=== PATIENT | male | born 1985 | race Two or more races ===

== ENCOUNTER 2017-05-20 09:55 | Emergency (ER) | payer OTHER ==
--- NOTE | 2017-05-20 11:00 | EDM.PDOC ---
ED HPI GENERAL MEDICAL PROBLEM - General Chief Complaint: Eye Problems Stated Complaint: EYE PAIN Time Seen by Provider: 05/20/17 10:12 Source of Information: Reports: Patient History Limitations: Reports: No Limitations - History of Present Illness INITIAL COMMENTS - FREE TEXT/NARRATIVE: The patient presents with pain and decreased vision to the left eye. He started noticing some pain to the left eye 2 days ago and he could not get in to see Dr Garrison so he went to see Dr Day. Dr Day examined his eye and dilated his eye. According to the patient Dr Day saw a corneal abrasion and put him on vibramycin drops, contact lens and patch. The pain is worse and his vision has decreased. He sees 20/20 with his right eye and he can see the outline of my nurse near the eye chart. He can see something cloudy in the left eye. He has photophobia. He denies any fever, chills, cough, congestion, chest pain, shortness of breath or abdominal pain. He had lasix 9 or 10 years ago. Onset: Gradual Duration: Day(s): (2) Location: Reports: Other (Left eye) Quality: Reports: Sharp Severity: Severe Improves with: Reports: None Worsens with: Reports: None Associated Symptoms: Reports: No Other Symptoms Left Eye Pain Score (Numeric/FACES): 7 - Related Data Allergies Allergy/AdvReac Type Severity Reaction Status Date / Time No Known Allergies Allergy Verified 05/20/17 10:05 Home Meds: Home Meds Tobramycin 0.3% [Tobramycin 0.3% Ophth Soln] 1 drop EYELF ASDIRECTED 05/20/17 [ History] Past Medical History - Past Health History Medical/Surgical History: Denies Medical/Surgical History Social & Family History - Tobacco Use Smoking Status *Q: Never Smoker - Caffeine Use Caffeine Use: Reports: Coffee - Recreational Drug Use Recreational Drug Use: No ED ROS GENERAL - Review of Systems Review Of Systems: See Below Constitutional: Reports: No Symptoms HEENT: Reports: Eye Pain (Left) Respiratory: Reports: No Symptoms Cardiovascular: Reports: No Symptoms Endocrine: Reports: No Symptoms GI/Abdominal: Reports: No Symptoms : Reports: No Symptoms Musculoskeletal: Reports: No Symptoms ED EXAM GENERAL W FULL EYE - Physical Exam Exam: See Below Exam Limited By: No Limitations General Appearance: Alert, No Apparent Distress Eye Exam: Left Eye: Abnormal Pupil (Left pupil does not react), Conjunctival Injection, Corneal Abrasion ([place] shaped to the upper outer cornea at the edge of the iris), Normal Fundi, Vision Changes (Cannot see chart but can see the outline of my nurse), Bilateral Eye: EOMI Visual Acuity (R) 20/: 20 With Correction: No IOP (R) in mmH IOP (L) in mmH IOP Measure with (Equipment): Other ([employer]) Eyelids: Bilateral: Normal Appearance Conjunctiva & Sclera: Left: Injected Cornea Exam: Left: Corneal Abrasion ([place] shape abrasion to the upper outer cornea with small punctate flourescein uptake throughout the cornea), Examined with Flourescein Extraocular Movements: Bilateral: Intact Pupillary Size: Left: 8 mm (Nonreactive) Pupillary Reaction: Left: Absent Anterior Chamber: Left: Other (WBC) Posterior Chamber: Left: Normal Funduscopic Nose: Normal Inspection Head: Atraumatic, Normocephalic Course - Vital Signs Last Recorded V/S: Last Vital Signs Temp 98.3 F 05/20/17 10:00 Pulse 90 05/20/17 10:00 Resp 16 05/20/17 10:00 BP 128/95 H 05/20/17 10:00 Pulse Ox 98 05/20/17 10:00 - Re-Assessments/Exams Free Text/Narrative Re-Assessment/Exam: 05/20/17 11:17 I put some proparicain drops in his eye and that helped with the exam. He removed the contact lens. He had good pressures. He has a crescent shaped white area to the left upper cornea at the edge of the iris. It did uptake flurosceen and there was also small punctate areas of flurosceen uptake to the middle cornea. This almost looks like welder oxyhydrogen's burn but he has not come in contact with any welding. 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 There were some WBCs in the anterior chamber on slit lamp exam. I am concerned about his eye. I called Dr Ventura the opthamologist salesperson wigs at [facility] and he wanted to see the patient right away. I sent him by private vehicle. Departure - Departure Time of Disposition: 11:00 Disposition: Home, Self-Care 01 Condition: Good Clinical Impression: Iritis Corneal abrasion Qualifiers: Encounter type: initial encounter Laterality: left Qualified Code(s): S05.02XA - Injury of conjunctiva and corneal abrasion without foreign body, left eye, initial encounter - Discharge Information Instructions: Corneal Abrasion, [id number] Referrals: Georgia Hall PA-C [Primary Care Provider] - Forms: ED Department Discharge Additional Instructions: Go directly to [place] to see Dr Negrete at the [facility] That is located at [address] [place], [place] [address] in [place]. Call when you get to [place] so they can meet you at the clinic. Go right there. He will be expecting you.
== END 2017-05-20 11:08 | disposition home or self-care (01) ==
LOC: JD.ED 09:55
DX: S05.02XA Injury of conjunctiva and corneal abrasion without foreign body, left eye, initial encounter (principal); H20.9 Unspecified iridocyclitis; X58.XXXA Exposure to other specified factors, initial encounter
CPT/HCPCS: 99283